=== PATIENT | female | born 1960 | race Caucasian/White ===

== ENCOUNTER 2018-05-30 21:23 | Emergency (ER) | payer OTHER ==
[~2018-05-30] VITALS: Ht 154.9 cm; Wt 63.0 kg
[2018-05-30 21:40] VITALS: Ht 154.9 cm; Wt 63.0 kg
[2018-05-30 23:20] LABS: BASOPHIL % 0.7 % (0-2); PLATELET COUNT 188 x10^3mcL (130-400); RED CELL DISTRIBUTION WIDTH 13.2 % (11.5-14.5)
[2018-05-30 23:26] LABS: CALCIUM 8.9 mg/dL (8.5-10.1); CARBON DIOXIDE 27.4 mmol/L (21-32); CHLORIDE SERUM 105 mmol/L (98-107); CREATININE SERUM 0.8 mg/dL (0.6-1.0); GFR1 > 60 mL/min; GLUCOSE SERUM 112 mg/dL (74-106); POTASSIUM SERUM 3.9 mmol/L (3.5-5.1); SODIUM SERUM 140 mmol/L (136-145)
[2018-05-30 23:41] LABS: ALBUMIN 3.5 g/dL (3.4-5.0); ALKALINE PHOSPHATASE 110 U/L (46-116); ALT/SGPT 34 U/L (14-59); AST/SGOT 18 U/L (15-37); BILIRUBIN TOTAL 0.3 mg/dL (0.20-1.00); LIPASE 127 IU/L (73-393); TOTAL PROTEIN, SERUM 6.8 g/dL (6.4-8.2)
[2018-05-31 00:37] LABS: microscopic required? NO
[2018-05-31 00:59] LABS: urine erythrocyte NEGATIVE (NEGATIVE)
[2018-05-31 02:45] VITALS: BP 115/73
== END 2018-05-31 02:45 | disposition home or self-care (01) ==
LOC: ED 21:23
PROVIDERS: Emergency Medicine
DX: D25.9 Leiomyoma of uterus, unspecified (principal); R11.10 Vomiting, unspecified; R88.0 Cloudy (hemodialysis) (peritoneal) dialysis effluent
CPT/HCPCS: 36415; J1885; J3010